=== PATIENT | male | born 1970 | race Caucasian/White ===

== ENCOUNTER 2025-02-02 08:31 | Emergency (ER) | payer OTHER, SELFPAY ==
[2025-02-02 08:46] VITALS: BP 148/82; PULSE 69; RESP 20; TEMP 36.6; O2SAT 95
--- NOTE | 2025-02-02 09:18 | ED.MEDCLEAR ---
HPI - Medical Clearance General Chief complaint: Medical Clearance Stated complaint: High Blood Pressure Source: patient Mode of arrival: ambulatory Limitations: no limitations History of Present Illness HPI Narrative: Patient is a 54 year old male who presents to the clinic for an elevated blood pressure reading. He has started taking his blood pressure at home and stated that his reading was 150/80 this morning. He does not currently have a primary care physician and does not take any blood pressure medications. Denies any lightheadedness, vision changes, or headaches. Related Information Home Medications ?Medication ?Instructions ?Recorded ?Confirmed ?Last Taken ?Type No Home Medications 02/02/25 02/02/25 Unknown History Allergies Allergy/AdvReac Type Severity Reaction Status Date / Time No Known Allergies Allergy Verified 02/02/25 09:20 Review of Systems Review of Systems: CONSTITUTIONAL: Denies body aches, fever, chills, or sweats. EYES: Denies visual changes, redness, or discharge. ENT: Denies rhinorrhea, congestion, sore throat, or otalgia. CARDIOVASCULAR: Denies chest pain, palpitations, or edema. RESPIRATORY: Denies cough or dyspnea. GASTROINTESTINAL: Denies abdominal pain, nausea, vomiting, or diarrhea. GENITOURINARY: Denies dysuria or hematuria. SKIN: Denies rash, itching, or wounds. MUSCULOSKELETAL: Denies back pain, joint pain, or myalgia. NEUROLOGIC: Denies headache, numbness, tingling, or weakness. PSYCH: ?Denies depression or anxiety. PMFSH Comments At time of signature, I have reviewed and agree with nursing past medical, surgical, social and family history unless otherwise noted. Please see nursing chart for further information. There is no relevant family history pertinent to the presenting complaint. Exam Narrative: GENERAL: Well-appearing, well-nourished, and in no acute distress. HEAD: Normocephalic, atraumatic. EYES: EOMI. ?No redness or drainage. Conjunctivae normal. ENT: Mucous membranes pink and moist. ?No rhinorrhea. ?TMs normal bilaterally. ?Throat normal. Uvula midline. NECK: Normal AROM. ?Supple. ?No lymphadenopathy. CHEST: ?No respiratory distress. Clear to auscultation. HEART: Regular rate and rhythm. No murmur appreciated. Normal peripheral pulses. MUSCULOSKELETAL: ?No bony tenderness. EXTREMITIES: Normal range of motion. No edema. SKIN: Warm, dry, no rash. Capillary refill normal. ?Normal skin turgor. NEURO: No focal deficits. Alert and oriented x3. Gait steady. PSYCH: ?Normal affect. ?No signs of depression or anxiety. Course Course Level of Care: Express Care Visit Vital Signs Vital signs: Vital Signs Temperature 97.9 F 02/02/25 08:46 Pulse Rate 69 02/02/25 08:46 Respiratory Rate 20 02/02/25 08:46 Blood Pressure 148/82 H 02/02/25 08:46 Pulse Oximetry 95 02/02/25 08:46 Oxygen Delivery Room Air 02/02/25 08:46 Temperature 97.9 F 02/02/25 08:46 Pulse Rate 69 02/02/25 08:46 Respiratory Rate 20 02/02/25 08:46 Blood Pressure 148/82 H 02/02/25 08:46 Pulse Oximetry 95 02/02/25 08:46 Oxygen Delivery Room Air 02/02/25 08:46 Reviewed. MDM - Medical Clearance MDM Narrative Medical decision making narrative: Discussed physical exam findings. Gave patient list of [facility] to choose a PCP. Advised patient to establish care and follow up with PCP regarding blood pressure. Talked with patient about the signs/symptoms to go to the ER. Pt is appropriate for outpatient treatment and follow up. Differential Diagnosis Differential diagnosis: Likely other (hypertension, hypertensive crisis, stroke, ) Critical Care Time Critical Care Time Critical Care Time: No Discharge Plan Discharge Clinical Impression: Elevated blood pressure reading Patient Disposition: Home Condition: Stable Instructions: Hypertensive Crisis (ED) Additional Instructions: Your blood pressure was 148/82 today at Urgent Care. This puts you above the threshold for follow up. Please establish care and schedule a followup visit with a primary physician as soon as possible, for further evaluation and treatment. Even blood pressure exceeding 120/80 may indicate pre-hypertension. [facility] Liaison: [phone] --please call this number and they will update find a primary care physician. If your blood pressure is greater than or equal to 180/120, you need to go to ED immediately or if you have any other concerning symptoms (such as a persistent headache, light headedness, vision changes). Patient Language: Mexican Follow-up/Referrals: PHYSICIAN,[facility] [Primary Care Provider] - Stand Alone Forms: Work/School Release IP Time of Disposition: 09:22
== END 2025-02-02 09:33 | disposition home or self-care (01) ==
DX: R03.0 Elevated blood-pressure reading, without diagnosis of hypertension (principal); J44.9 Chronic obstructive pulmonary disease, unspecified
CPT/HCPCS: 99202; G0463